=== PATIENT | male | born 1955 | race African-American/Black ===

== ENCOUNTER 2020-01-24 19:23 | Emergency (ER) | payer MEDICARE, MEDICAID ==
[~2020-01-24] VITALS: Ht 193 cm; Wt 113.0 kg
[2020-01-25 02:49] VITALS: BP 149/85
== END 2020-01-25 02:50 | disposition home or self-care (01) ==
LOC: ER 19:23
DX: F10.129 Alcohol abuse with intoxication, unspecified (principal); Y90.9 Presence of alcohol in blood, level not specified; I10 Essential (primary) hypertension; Z59.0 Homelessness
CPT/HCPCS: 99283

== ENCOUNTER 2020-01-25 03:42 | Emergency (ER) | payer MEDICARE, MEDICAID ==
[~2020-01-25] VITALS: Ht 177.8 cm; Wt 116.0 kg
[2020-01-25 05:27] VITALS: BP 145/74
== END 2020-01-25 05:27 | disposition home or self-care (01) ==
LOC: ER 03:42
DX: B35.6 Tinea cruris (principal); I10 Essential (primary) hypertension
CPT/HCPCS: 99283

== ENCOUNTER 2022-07-12 18:53 | Emergency (ER) | payer BC, MEDICARE, OTHER ==
[~2022-07-12] VITALS: Ht 182.9 cm; Wt 82.0 kg
[2022-07-12 19:01] VITALS: BP 150/80
== END 2022-07-12 20:35 | disposition home or self-care (01) ==
LOC: ER 18:55
DX: M25.571 Pain in right ankle and joints of right foot (principal); I10 Essential (primary) hypertension; Z59.00 Homelessness unspecified; Z21 Asymptomatic human immunodeficiency virus [HIV] infection status
CPT/HCPCS: 99283